=== PATIENT | male | born 2000 | race Caucasian/White ===

== ENCOUNTER 2024-04-11 04:07 | Day surgery (SDC) | payer OTHER ==
[~2024-04-11] VITALS: Ht 182.9 cm; Wt 64.0 kg
[2024-04-11] VITALS (252 sets, daily range): BP systolic 72–154; BP diastolic 28–99
[2024-04-11] MEDS ORDERED: cloNIDine HCL 0.1 MG/TAB PO PRN (07:30)
[2024-04-11] MEDS ORDERED: LACTATED RINGER'S 1,000 ML IV PRN ×3 (07:30→19:00)
[2024-04-11] MEDS ORDERED: diazePAM 5 MG/TAB PO PRN ×2 (07:30→08:30)
[2024-04-11] MEDS ORDERED: CYANOCOBALAMIN 500 MCG/TAB ( B12) PO PRN (07:30)
[2024-04-11] MEDS ORDERED: PANTOPRAZOLE SODIUM Sesquihydr 40 MG/TAB PO PRN (07:30)
[2024-04-11] MEDS ORDERED: SCOPOLAMINE 1.5 MG DIS TD PRN (07:30)
[2024-04-11] MEDS ORDERED: FAMOTIDINE 20 MG/TAB PO PRN (07:30)
[2024-04-11] MEDS ORDERED: ALBUTEROL SULFATE 2.5 MG VIAL IN PRN (07:30)
[2024-04-11] MEDS ORDERED: CLONAZEPAM0.5 M1 PO (07:46)
[2024-04-11] MEDS ORDERED: CLONIDINE0.2 MG PO (07:47)
[2024-04-11] MEDS ORDERED: GABAPENTIN300 M2 PO (07:47)
[2024-04-11 07:51] LABS: BASO% 0.4 % (0-3); EOS% 1.6 % (0-8); HEMATOCRIT 39.8 % (39.0-50.0); HEMOGLOBIN 12.9 g/dl (14.0-18.0); LYMPH% 20.6 % (15-41); MEAN CORPUSCULAR HGB 29.2 pG CALC (26.0-32.0); MEAN CORPUSCULAR HGB CONC 32.4 g/dL CAL (32.0-36.0); MONO% 8.3 % (2-13); NEUT# 3.5 thou/uL (1.82-7.42); NEUT% 69.1 % (42-76); RED BLOOD COUNT 4.42 mill/uL (4.70-6.10); RED CELL DISTRI WIDTH 11.8 % (11.5-15.5)
[2024-04-11] MEDS ORDERED: ASCORBIC ACID 4,000 MG in SODIUM CHLORIDE 0.9% 1,000 ML IV SCH (08:00)
[2024-04-11 08:01] LABS: ALBUMIN 4.5 g/dL (3.2-5.0); BILIRUBIN, TOTAL 0.6 mg/dL (0.2-1.3); CREATININE 0.7 mg/dL (0.7-1.3); POTASSIUM 3.7 mmol/l (3.5-5.1); TOTAL PROTEIN 6.7 g/dL (6.3-8.2)
[2024-04-11] MEDS ORDERED: MAGNESIUM SULFATE HEPTAHYDRATE 100 ML IV PRN (09:10)
[2024-04-11] MEDS ORDERED: MIDAZOLAM HCL 2 MG/2 ML VIAL IV PRN (09:10)
[2024-04-11] MEDS ORDERED: OCTREOTIDE ACETATE 100 MCG/VIAL SDV SC PRN (09:10)
[2024-04-11] MEDS ORDERED: cloNIDine HYDROCHLORIDE 100 MCG/ML 10 ML INJ IV PRN (09:10)
[2024-04-11] MEDS ORDERED: LIDOCAINE HCL 1% (10MG/ML) 100 MG/10 ML MDV VT PRN ×2 (09:10)
[2024-04-11] MEDS ORDERED: PROPOFOL 100 ML IV PRN (09:10)
[2024-04-11] MEDS ORDERED: cloNIDine HCL 0.1 MG/TAB VT PRN (09:10)
[2024-04-11] MEDS ORDERED: DiphenhydrAMINE HCL 50 MG/ML SDV IV PRN (09:10)
[2024-04-11] MEDS ORDERED: THIAMINE HCL 100 MG/ML 2ML VIAL IV PRN (09:10)
[2024-04-11] MEDS ORDERED: DEXAMETHASONE SODIUM PHOSPHATE PF 10 MG/ML SDV IV PRN ×2 (09:10→19:00)
[2024-04-11] MEDS ORDERED: NALTREXONE HCL 50 MG/TAB VT PRN (09:10)
[2024-04-11] MEDS ORDERED: POTASSIUM CHLORIDE 10 MEQ/50 ML BAG IV PRN (09:10)
[2024-04-11] MEDS ORDERED: PROPOFOL 10 MG/ML 100ML VIAL IV PRN (09:10)
[2024-04-11] MEDS ORDERED: SUCCINYLCHOLINE CHLORIDE 20 MG/ML 10ML VIAL IV PRN (09:10)
[2024-04-11] MEDS ORDERED: ROCURONIUM BROMIDE 10 MG/ML 5ML VIAL IV PRN (09:10)
[2024-04-11] MEDS ORDERED: STERILE WATER FOR IRRIGATION 1,000 ML BTL IR PRN (09:10)
[2024-04-11] MEDS ORDERED: ONDANSETRON HCl 4 MG/2 ML SDV IV PRN ×3 (09:10→19:00)
[2024-04-11] MEDS ORDERED: diazePAM 5 MG/TAB VT PRN (09:10)
[2024-04-11] MEDS ORDERED: LIDOCAINE HCL 1% (10MG/ML) 100 MG/10 ML MDV IV PRN (09:10)
[2024-04-11] MEDS ORDERED: ONDANSETRON HCl 4 MG/2 ML SDV ONE (09:53)
[2024-04-11] MEDS ORDERED: diazePAM 10 MG/2 ML VIAL ONE (09:56)
[2024-04-11] MEDS ORDERED: diazePAM 5 MG/TAB PO SCH (10:00)
[2024-04-11] MEDS ORDERED: cloNIDine HCL 0.1 MG/TAB PO SCH ×2 (10:00→23:00)
[2024-04-11] MEDS ORDERED: diazePAM 10 MG/2 ML VIAL IV SCH (10:30)
[2024-04-11] MEDS ORDERED: cloNIDine HYDROCHLORIDE 100 MCG/ML 10 ML INJ IV SCH (10:30)
[2024-04-11] MEDS ORDERED: ONDANSETRON HCl 4 MG/2 ML SDV IV SCH (11:00)
[2024-04-11] MEDS ORDERED: PHENYLEPHRINE HCL 10 MG in SODIUM CHLORIDE 0.9% 250 ML IV PRN (12:00)
[2024-04-11] MEDS ORDERED: METOPROLOL TARTRATE 5 MG/5 ML VIAL IV ONE (12:25)
[2024-04-11 13:13] LABS: URINE BILIRUBIN - DIPSTICK Negative (NEGATIVE); URINE BLOOD DIPSTICK Negative (NEGATIVE); URINE GLUCOSE - DIPSTICK Negative (NEGATIVE); URINE KETONE 15 mg/dL (NEGATIVE); URINE LEUK ESTERASE Negative (NEGATIVE); URINE NITRITE - DIPSTICK Negative (Negative); URINE PROTEIN - DIPSTICK Negative (NEG-TRACE); URINE UROBILINOGEN - DIPSTICK 0.2 E.U./dL (0.2)
[2024-04-11 13:16] LABS: URINE COLOR Yellow
[2024-04-11] MEDS ORDERED: NALTREXONE50 MG PO (13:44)
[2024-04-11] MEDS ORDERED: CLONIDINE0.1 MG PO (13:44)
[2024-04-11] MEDS ORDERED: KLONOPIN2 MG PO (13:44)
[2024-04-11] MEDS ORDERED: levoFLOXacin 500 MG TAB PO SCH (14:00)
[2024-04-11] MEDS ORDERED: ACETAMINOPHEN 500 MG TAB PO PRN (19:00)
[2024-04-11] MEDS ORDERED: LORazepam 2 MG/ML IV PRN ×2 (19:00)
[2024-04-11] MEDS ORDERED: PROMETHAZINE HCL 25 MG in SODIUM CHLORIDE 0.9% 50 ML IV PRN (19:00)
[2024-04-11] MEDS ORDERED: KETOROLAC TROMETHAMINE 30 MG/ML SDV IV PRN (19:00)
[2024-04-11] MEDS ORDERED: HALOPERIDOL LACTATE 5 MG/ML SDV IV PRN (19:00)
[2024-04-11] MEDS ORDERED: ACETAMINOPHEN 1,000 MG/100 ML VIAL IV PRN (19:00)
[2024-04-11] MEDS ORDERED: PROMETHAZINE HCL 12.5 MG in SODIUM CHLORIDE 0.9% 50 ML IV PRN (19:00)
[2024-04-11] MEDS ORDERED: PATIENT' OWN MED CONTROLLED 1 EA DOSE IV PRN (21:00)
[2024-04-11] MEDS ORDERED: clonazePAM 1 MG/TAB PO PRN (23:00)
[2024-04-12 03:32] VITALS: BP 118/46
[2024-04-12] MEDS ORDERED: clonazePAM 1 MG/TAB PO PRN ×2 (04:00→08:00)
[2024-04-12] MEDS ORDERED: cloNIDine HCL 0.1 MG/TAB PO PRN (04:00)
[2024-04-12 05:38] LABS: BASO% 0.1 % (0-3); IMMATURE GRANULOCYTES 0.1 % (0.0-5.0); LYMPH% 6.1 % (15-41); MEAN CELL VOLUME 91.2 fL CALC (80.0-100.0); MEAN CORPUSCULAR HGB 29.8 pG CALC (26.0-32.0); MEAN CORPUSCULAR HGB CONC 32.7 g/dL CAL (32.0-36.0); MONO% 4.6 % (2-13); NEUT# 6.97 thou/uL (1.82-7.42); NEUT% 89.1 % (42-76); RED BLOOD COUNT 3.42 mill/uL (4.70-6.10); RED CELL DISTRI WIDTH 12.3 % (11.5-15.5)
[2024-04-12 05:42] LABS: HEMATOCRIT 31.2 % (39.0-50.0); HEMOGLOBIN 10.2 g/dl (14.0-18.0)
[2024-04-12 06:02] LABS: ALBUMIN 3.8 g/dL (3.2-5.0); BILIRUBIN, TOTAL 0.8 mg/dL (0.2-1.3); CREATININE 0.7 mg/dL (0.7-1.3); MAGNESIUM 1.9 mg/dL (1.6-2.3); POTASSIUM 3.1 mmol/l (3.5-5.1)
[2024-04-12] MEDS ORDERED: POTASSIUM CHLORIDE 20 MEQ/TAB PO ONE (07:35)
[2024-04-12] MEDS ORDERED: ACETAMINOPHEN 325 MG/TAB PO SCH (08:00)
[2024-04-12] MEDS ORDERED: NALTREXONE HCL 50 MG/TAB PO SCH (08:00)
[2024-04-12] MEDS ORDERED: cloNIDine HCL 0.1 MG/TAB PO SCH (08:00)
[2024-04-12] MEDS ORDERED: PANTOPRAZOLE SODIUM Sesquihydr 40 MG/TAB PO SCH (08:00)
[2024-04-12 08:20] VITALS: BP 91/41
[2024-04-12] MEDS ORDERED: ACETAMINOPHEN 500 MG TAB PO PRN (09:00)
[2024-04-12] MEDS ORDERED: MAGNESIUM SULFATE HEPTAHYDRATE 50 ML IV SCH (09:00)
[2024-04-12] MEDS ORDERED: MAGNESIUM OXIDE 400 MG/TAB PO PRN (09:00)
[2024-04-12] MEDS ORDERED: Cholecalciferol 2,000 UNIT/TAB PO PRN (09:00)
[2024-04-12] MEDS ORDERED: NALTREXONE HCL 50 MG/TAB PO ONE (11:10)
== END 2024-04-12 16:11 | disposition home or self-care (01) | DRG 897 ==
LOC: MS2 04:07 → ANR 04:07
PROVIDERS: ATTEND Anesthesiology
DX: F11.20 Opioid dependence, uncomplicated (principal)
CPT/HCPCS: J1100; J2060; J2354; J3475; J3490